=== PATIENT | female | born 2000 | race Caucasian/White ===

== ENCOUNTER 2021-03-10 13:06 | Outpatient (CLI) | payer OTHER ==
[~2021-03-10] VITALS: Ht 147.3 cm; Wt 61.8 kg
[2021-03-10 13:25] VITALS: BP 118/68; PULSE 99; TEMP 97.4
[2021-03-10] MEDS ORDERED: PRENATAL TABLET PO (13:38)
--- NOTE | 2021-03-10 13:49 | NUR ---
1327 PATIENT HERE FOR COMPLAINTS OF CONTRACTIONS SINCE THIS MORNING.ASSESSMENT COMPLETED. EFM ON FHT 130 BABY VERY ACTIVE. CONTRATIONS PALPATE MILD. DENIES NEEDS. SVE /-3
[2021-03-10 14:28] VITALS: PULSE 78
--- NOTE | 2021-03-10 14:29 | NUR ---
1430 SVE UNCHANGED ALL DISCHARGE INSTRUCTIONS GIVEN WITH VERBAL UNDERSTANDING. DENIES NEEDS. PATIENT DISMISSED TO POV WITH
== END 2021-03-10 14:30 | disposition home or self-care (01) ==
LOC: LDRO 13:06
DX: O62.9 Abnormality of forces of labor, unspecified (principal); Z3A.39 39 weeks gestation of pregnancy

== ENCOUNTER 2021-03-12 23:05 | Inpatient (IN) | payer OTHER ==
[~2021-03-12] VITALS: Ht 147.3 cm; Wt 63.2 kg
[~2021-03-12 23:05] MED LIST: PRENATAL TABLET PO
--- NOTE | 2021-03-12 23:10 | NUR ---
G1 at 39 weeks 3 days arrives to unit with complaint of spontaneous rupture of membranes. Pt reports feeling large gush of clear fluid around 2215. Reports good movement. Denies vaginal bleeding. Denies problems this . Clean gown on. Oriented to room, call light within reach, bed in low and locked position. US and toco explained and applied. Admission assessment started. Vital signs obtained. Category 1 FHR tracing obtained. SVE 1-2/80/-3, grossly ruptured on exam. Amnitrace positive.
[2021-03-12 23:30] VITALS: BP 119/76; PULSE 87; TEMP 98.3
[2021-03-13] VITALS (43 sets, daily range): BP systolic 93–129; BP diastolic 51–71; PULSE 82–144; TEMP 97.9–100
--- NOTE | 2021-03-13 00:15 | NUR ---
IV started and labs obtained via IV site. LR bolus infusing without difficulties. Consents signed. Plan of care explained to pt and who verbalize their understanding. 0050: Pt off monitor to void and ambulate in room.
[2021-03-13 00:53] LABS: BASO % 0.3 % (0.0-2.0); EOS % 0.3 % (0-4.0); GRAN # 8.3 (1.4-6.5); GRAN % 70.2 % (42.2-75.2); HEMATOCRIT 38.4 % (37.0-47.0); HEMOGLOBIN 13.2 g/dl (12.5-16.0); LYMPH # 2.1 (1.2-3.4); LYMPH % 17.4 % (20.0-51.0); MEAN CELL VOLUME 87 fl (80.0-100.0); MEAN CORPUSCULAR HEMOGLOBIN 30 pg (27.0-31.0); MEAN CORPUSCULAR HGB CONC 34 g/dl (33.0-37.0); MEAN PLATELET VOLUME 10.6 fl (7.4-10.4); MONO # 1.2 (0.1-0.6); MONO % 10.4 % (1.7-9.3); PLATELET COUNT 256 K/mm3 (130-400); RED BLOOD COUNT 4.44 M/mm3 (4.10-5.30); REDCELL DISTRIBUTION WIDTH-CV 12.8 % (11.5-14.5)
--- NOTE | 2021-03-13 02:06 | NUR ---
Pt off monitors to ambulate in hallway and use birthing ball.
--- NOTE | 2021-03-13 02:43 | NUR ---
Pt feeling like contractions are increasing intensity. SVE 1-2/80/-2, bloody show noted. Plan of care and pain management explained to pt. Questions answered. 0309: Pt off monitors to take a hot shower.
--- NOTE | 2021-03-13 04:20 | NUR ---
SVE /-2. Educated pt on providers pitocin orders. Questions and concerns answered. Pt wanting an epidural before starting pitocin. 0440: LR bolus infusing without difficulties and Dimitri AGUDELO notified. Pt up to bathroom. 0505: Dimitri AGUDELO at bedside for epidural placement. Procedure explained and questions answered. Pulse ox applied and tracing. Difficulty tracing FHR due to maternal position. 0518: Test dose administered by Dimitri AGUDELO. See anesthesia records. 0523: Pt repositioned to wedge left position per request. Plan of care and safety precautions explained to pt.
--- NOTE | 2021-03-13 06:10 | NUR ---
Ruiz placed without difficulties. SVE /-2. Pericare provided. 0615: Pitocin explained and started at 2mus/hr per protocol. 0630: Report given to Jeremy WADE
--- NOTE | 2021-03-13 06:50 | NUR ---
0650-Dr. Dean on unit. Reviews FHR monitor. In to see patient. SVE 3-/-2. Orders to continue to augment with pitocin per protocol. Patient sleeping inbetween bedside updtaes and spouse asleep on chair in room.
--- NOTE | 2021-03-13 10:20 | NUR ---
1020-Patient RL with peanut ball. 1050-FHR down to 125 with contraction and slow return to baseline. SVE 8/100/0, IVF bolus. Repositioned to [facility]. Maternal oral temp 98.9, body feels warm to touch.
--- NOTE | 2021-03-13 11:19 | NUR ---
1119-Updated MD on patients temperature and FHR tachycardia. Orders for Amp and Gent recieved. 1123-Amp given, see EMAR and 1 G tylenol. 1130-Patient sitting up with emesis. 1138-Dr. Dean to unit. SVE by C/+1 1145-Patient begins pusing with this RN. 1218-Dr. Dean to room. Pushes with two contractions with patient. Encouarges patient to continue to push.RN reumes pushing with patient. 1245-Dr. Dean to room to review pushing efforts. Pushes with patient through two contractions. RN resumes pushing.Patient moves vertex well. 1305-Dr. Dean back to patient room. Patient moves vertex well with MD. Set up for delivery. 1311-Spontaneous delivery of head assisted by Dr. Dean, Immediately body follows. Viable femal to mothers abodemn. Cord clamped x2 and cut by MD and to warmer in room and care assumed by MAURO Vazquez. Apgars 3/6/9. 1313-Spontaneous delivery of intact placenta by . Fundal massage firm, Lochia WNL. EBL 300ml. Pitocin bolus per MD and protocol. Cord gasses obtained and sent per MD and Placenta to pathology. Second degree perineal laceration by MD. Ena care provided updated patient on safety and plan of care.
--- NOTE | 2021-03-13 15:00 | NUR ---
1500-Patient up to bathroom with assist x1, easily voids 200 ml, clear yellow urine. To nursery to visit . 1600-To room, oriented to room, assisted with infant who is rooming in.
[2021-03-14 02:00] VITALS: BP 110/62; PULSE 86; TEMP 98.6
[2021-03-14 07:25] VITALS: BP 90/54; PULSE 88; TEMP 98.2
[2021-03-14 11:55] VITALS: BP 109/64; PULSE 95; TEMP 97.6
[2021-03-14 16:00] VITALS: BP 102/56; PULSE 90; TEMP 98
[2021-03-14 19:58] VITALS: BP 113/57; PULSE 81; TEMP 98.9
[2021-03-15 07:58] VITALS: BP 105/59; PULSE 72; TEMP 98.1
[2021-03-15] MEDS ORDERED: IBU800 M1 PO (10:20)
== END 2021-03-15 14:26 | disposition home or self-care (01) | DRG 807 ==
LOC: LDRO 23:05 → LDR 23:10 → OB 23:10
PROVIDERS: Obstetrics & Gynecology; ADMIT Obstetrics & Gynecology
PROC: 10E0XZZ Delivery of Products of Conception, External Approach (ICD-10-PCS; principal; 2021-03-12)
PROC: 0KQM0ZZ Repair Perineum Muscle, Open Approach (ICD-10-PCS; 2021-03-12)
DX: O41.1230 Chorioamnionitis, third trimester, not applicable or unspecified (principal); Z37.0 Single live birth; O70.1 Second degree perineal laceration during delivery; Z3A.39 39 weeks gestation of pregnancy
CPT/HCPCS: J0290; J1580; J2405; J2590; J7120